=== PATIENT | female | born 1990 | race Caucasian/White ===

== ENCOUNTER 2018-08-05 15:41 | Emergency (ER) | payer BC ==
[~2018-08-05] VITALS: Ht 157.5 cm; Wt 90.7 kg
--- NOTE | 2018-08-05 15:41 | NUR ---
PT BIBSELF FROM HOME, C/O UPPER ABDOMINAL PAIN, NAUSEA AND VOMITING, AAOX4, RESPIRATIOSN EVEN AND UNLABORED, NO SOB, NAD NOTED, VSS, PENDING ER PROVIDER EVAL
[2018-08-05] MEDS ORDERED: ONDANSETRON HCL/PF 4 MG/2 ML VIAL ONE (16:29)
[2018-08-05] MEDS ORDERED: IV NS 0.9% 1,000 ML BAG IV ONE (16:30)
[2018-08-05] MEDS ORDERED: ONDANSETRON HCL/PF 4 MG/2 ML VIAL IVP ONE (16:30)
[2018-08-05] MEDS ORDERED: HYDROMORPHONE INJ 2 MG/ML DISP.SYRIN IV ONE (16:30)
[2018-08-05] MEDS ORDERED: HYDROMORPHONE INJ 2 MG/ML DISP.SYRIN ONE (16:30)
[2018-08-05 16:32] LABS: BASOPHILS # (AUTO) 0.1 /CMM (0.0-0.2); BASOPHILS % (AUTO) 0.9 % (0.0-2.0); EOSINOPHILS % (AUTO) 1.7 % (0.0-6.0); HEMATOCRIT 39 % (33-45); HEMOGLOBIN 12.8 g/dL (11.5-14.8); LYMPHOCYTES # (AUTO) 1.7 /CMM (0.8-4.8); LYMPHOCYTES % (AUTO) 30.5 % (20.0-44.0); MEAN CORPUSCULAR HGB CONC 33 g/dl (31.0-36.0); MEAN CORPUSCULAR VOLUME 83 fL (82-100); MONOCYTES # (AUTO) 0.4 /CMM (0.1-1.30); MONOCYTES % (AUTO) 6.7 % (2.0-12.0); NEUTROPHILS # (AUTO) 3.4 /CMM (1.8-8.9); NEUTROPHILS % (AUTO) 60.2 % (43.0-81.0); PLATELET COUNT (AUTO) 283 /CMM (150-450); WHITE BLOOD COUNT (AUTO) 5.7 K/uL (4.3-11.0)
[2018-08-05 16:39] LABS: APPEARANCE,URINE Clear (CLEAR); BILIRUBIN,URINE Negative (NEGATIVE); BLOOD, URINE Negative Ery/uL (NEGATIVE); COLOR,URINE Yellow (YELLOW); KETONES,URINE Trace (NEGATIVE); LEUKOCYTE ESTERASE ,URINE Negative (NEGATIVE); NITRITE, URINE Negative (NEGATIVE); PROTEIN,URINE Trace mg/dl (NEGATIVE); UGLUCOSE Negative (NEGATIVE); UROBILINOGEN,URINE 0.2 EU/dL (0.2)
[2018-08-05 16:42] LABS: ALBUMIN 3.6 g/dL (3.4-5.0); BILIRUBIN,DIRECT 0.1 mg/dL (0.0-0.2); BILIRUBIN,TOTAL 0.3 mg/dL (0.2-1.0); CALCIUM, SERUM 8.7 mg/dL (8.5-10.1); CREATININE 0.9 mg/dL (0.6-1.3); POTASSIUM 4.1 mmol/L (3.5-5.1); TOTAL PROTEIN, SERUM 7.6 g/dL (6.4-8.2)
[2018-08-05] MEDS ORDERED: diphenhydrAMINE HCL 50 MG/ML VIAL ONE (16:44)
[2018-08-05] MEDS ORDERED: METOCLOPRAMIDE HCL 10 MG/2 ML VIAL IV ONE (17:00)
[2018-08-05] MEDS ORDERED: KETOROLAC TROMETHAMINE INJ 30 MG/ML VIAL IV ONE (17:00)
[2018-08-05] MEDS ORDERED: diphenhydrAMINE HCL 50 MG/ML VIAL IV ONE (17:00)
[2018-08-05] MEDS ORDERED: PANTOPRAZOLE 40 MG VIAL IV ONE (17:00)
[2018-08-05 17:01] LABS: BACTERIA,URINE 1+ /HPF (None Seen); RBC,URINE 0-2 /HPF (0-2); WBC,URINE 0-2 /HPF (0-3)
[2018-08-05] MEDS ORDERED: METOCLOPRAMIDE HCL 10 MG/2 ML VIAL ONE (17:19)
[2018-08-05] MEDS ORDERED: KETOROLAC TROMETHAMINE INJ 30 MG/ML VIAL ONE (17:19)
[2018-08-05] MEDS ORDERED: PANTOPRAZOLE 40 MG VIAL ONE (17:20)
--- NOTE | 2018-08-05 18:12 | NUR ---
Patient discharged to home in stable condition. Written and verbal after care instructions given. Patient verbalizes understanding of instruction.IV removed. Catheter intact and site benign. Pressure and 4x4 applied to site. No bleeding noted.
[2018-08-05 18:15] VITALS: BP 120/64
== END 2018-08-05 18:16 | disposition home or self-care (01) ==
LOC: ER 15:44
DX: E86.0 Dehydration (principal); G89.29 Other chronic pain; R10.13 Epigastric pain; R11.2 Nausea with vomiting, unspecified; Z87.19 Personal history of other diseases of the digestive system; Z88.0 Allergy status to penicillin
CPT/HCPCS: 36415; 80048-TC; 80076-TC; 81000-TC; 83690-TC; 84703-TC; 85025-TC; 85730-TC; C9113; J1170; J1200; J1885; J2405; J2765; J7030

== ENCOUNTER 2019-07-02 13:49 | Emergency (ER) | payer BC ==
[~2019-07-02] VITALS: Ht 157.5 cm; Wt 90.7 kg
[2019-07-02 13:54] VITALS: BP 139/85
--- NOTE | 2019-07-02 14:06 | NUR ---
AT BEDSIDE FOR EVAL.
[2019-07-02] MEDS ORDERED: predniSONE 20 MG TABLET ONE (14:21)
[2019-07-02] MEDS ORDERED: FAMOTIDINE (20 MG) 20 MG TABLET ONE (14:21)
--- NOTE | 2019-07-02 14:26 | NUR ---
Patient discharged to home in stable condition. Written and verbal after care instructions given. Patient verbalizes understanding of instruction.
[2019-07-02] MEDS ORDERED: FAMOTIDINE (20 MG) 20 MG TABLET PO ONE (14:30)
[2019-07-02] MEDS ORDERED: predniSONE 20 MG TABLET PO ONE (14:30)
== END 2019-07-02 14:27 | disposition home or self-care (01) ==
LOC: ER 13:52
DX: L50.9 Urticaria, unspecified (principal); T40.2X5A Adverse effect of other opioids, initial encounter; Z88.0 Allergy status to penicillin; Z88.2 Allergy status to sulfonamides; Z88.5 Allergy status to narcotic agent; Y92.89 Other specified places as the place of occurrence of the external cause
CPT/HCPCS: 99283; J7512

== ENCOUNTER 2022-01-14 09:44 | Emergency (ER) | payer BC ==
[~2022-01-14] VITALS: Ht 157.5 cm; Wt 83.9 kg
--- NOTE | 2022-01-14 09:55 | NUR ---
RECEIVED PT 31YRS FEMALE CAME BY CANDIS C/O HEADACH , FEVER BODY ACH FOR 3 DAY AND SORE THROTE AND COUGHING SKI WORM TO TOUCH
--- NOTE | 2022-01-14 10:05 | NUR ---
Examin by DR. POOLE . ORDER GIVEN CXRAY DONE
[2022-01-14] MEDS ORDERED: KETOROLAC TROMETHAMINE 15 MG/ML VIAL ONE ×2 (10:11→12:18)
[2022-01-14] MEDS ORDERED: ONDANSETRON HCL/PF 4 MG/2 ML VIAL ONE ×2 (10:11→12:18)
[2022-01-14] MEDS ORDERED: GUAIFENESIN/D-METHORPHAN HB 5 ML UDC ONE (10:11)
--- NOTE | 2022-01-14 10:25 | NUR ---
COVID SWAP AND INFUZ SWAP SENT TO LAB
[2022-01-14] MEDS ORDERED: GUAIFENESIN/D-METHORPHAN HB 5 ML UDC PO ONE (10:30)
[2022-01-14] MEDS ORDERED: ONDANSETRON HCL/PF 4 MG/2 ML VIAL IVP ONE (10:30)
[2022-01-14] MEDS ORDERED: KETOROLAC TROMETHAMINE INJ 30 MG/ML VIAL IV ONE ×2 (10:30→12:00)
[2022-01-14] MEDS ORDERED: IV NS 0.9% 1,000 ML IV ONE ×2 (10:30→12:00)
--- NOTE | 2022-01-14 10:30 | NUR ---
BLOOD DROW AND SENT TO LAB
[2022-01-14 10:47] LABS: BASOPHILS % (AUTO) 0.5 % (0.0-2.0); EOSINOPHILS % (AUTO) 0.1 % (0.0-6.0); HEMATOCRIT 34 % (33-45); HEMOGLOBIN 11.7 g/dL (11.5-14.8); LYMPHOCYTES # (AUTO) 0.2 K/uL (0.8-4.8); MEAN CORPUSCULAR HGB CONC 34 g/dl (31.0-36.0); MEAN CORPUSCULAR VOLUME 85 fL (82-100); MONOCYTES # (AUTO) 0.4 K/uL (0.1-1.30); MONOCYTES % (AUTO) 8.8 % (2.0-12.0); NEUTROPHILS # (AUTO) 4.4 K/uL (1.8-8.9); NEUTROPHILS % (AUTO) 86.6 % (43.0-81.0); PLATELET COUNT (AUTO) 176 K/uL (150-450); RED BLOOD CELL COUNT(AUTO) 4.01 MIL/uL (4.0-5.2); WHITE BLOOD COUNT (AUTO) 5.1 K/uL (4.3-11.0)
[2022-01-14 10:59] LABS: ALBUMIN 3.8 g/dL (3.4-5.0); BILIRUBIN,TOTAL 0.2 mg/dL (0.2-1.0); CALCIUM, SERUM 8.8 mg/dL (8.5-10.1); POTASSIUM 3.7 mmol/L (3.5-5.1); TOTAL PROTEIN, SERUM 7.4 g/dL (6.4-8.2)
--- NOTE | 2022-01-14 10:59 | NUR ---
RESTING AND ASLEEPY AT THIS TIME
--- NOTE | 2022-01-14 11:22 | NUR ---
COVID POSITIVE RESULT PER [facility] FROM LAB. DR. POOLE MADE AWARE.
--- NOTE | 2022-01-14 11:55 | NUR ---
wating for dispo
[2022-01-14] MEDS ORDERED: GUAI1TBM19 PO ×2 (11:56→12:35)
[2022-01-14] MEDS ORDERED: Paxlovid PO ×2 (11:56→12:35)
[2022-01-14] MEDS ORDERED: ONDA4TAB11 PO ×2 (11:56→12:35)
[2022-01-14] MEDS ORDERED: ONDANSETRON HCL/PF - ER 4 MG/2 ML VIAL IV ONE (12:00)
--- NOTE | 2022-01-14 13:21 | NUR ---
PT BEE SHAVER AND IMPROVING
--- NOTE | 2022-01-14 14:15 | NUR ---
DINESES PAIN d/c instraction given to pt fully and verblized understood d/c home with rx and fully up care
[2022-01-14 14:23] VITALS: BP 118/69
== END 2022-01-14 14:25 | disposition home or self-care (01) ==
LOC: ER 09:46
DX: U07.1 COVID-19 (principal); R11.2 Nausea with vomiting, unspecified; R51.9 Headache, unspecified; Z88.0 Allergy status to penicillin; Z88.2 Allergy status to sulfonamides; Z87.19 Personal history of other diseases of the digestive system
CPT/HCPCS: 36415; 71045; 80053; 85025; 87426; 87804; 96361; 96374; 96375; 96376; 99285; C9803; J1885 ×2; J2405 ×2; J7030 ×2